=== PATIENT | male | born 1930 | race Caucasian/White ===

== ENCOUNTER 2017-11-18 06:59 | Emergency (ER) | payer MEDICARE, OTHER ==
[~2017-11-18] VITALS: Ht 182.9 cm; Wt 75.0 kg
[2017-11-18 07:07] VITALS: BP 175/87; PULSE 68; RESP 16; TEMP 97.8; O2SAT 99
--- NOTE | 2017-11-18 07:43 | PD ---
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 Pt has had a mccall catheter for a year with monthly changes at his urologist's office but did not have extra urine bags at home. Denies any fever , chest pain, sob, n/v, abdominal pain, hematuria, focal weakness or numbness. PFSH Past Medical History Hx Anticoagulant Therapy: No Diabetes: No Genitourinary: Yes (urinary retention) Social History Alcohol Use: No Tobacco Use: No Substance Use: No Allergies-Medications (Allergen,Severity, Reaction): Coded Allergies: No Known Allergies (Unverified , 11/18/17) Reported Meds & Prescriptions Reported Meds & Active Scripts Active No Active Prescriptions or Reported Medications Review of Systems Except as stated in HPI: all other systems reviewed are Neg Physical Exam Narrative GENERAL: 87yo M not in distress. SKIN: Focused skin assessment warm/dry. HEAD: Atraumatic. Normocephalic. CARDIOVASCULAR: Regular rate and rhythm. No murmur appreciated. RESPIRATORY: No accessory muscle use. Clear to auscultation. Breath sounds equal bilaterally. GASTROINTESTINAL: Abdomen soft, non-tender, nondistended. : Mccall catheter: Draining MUSCULOSKELETAL: No obvious deformities. No clubbing. No cyanosis. No edema. NEUROLOGICAL: Awake and alert. No obvious cranial nerve deficits. Motor grossly within normal limits. Normal speech. PSYCHIATRIC: Appropriate mood and affect; insight and judgment normal. 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 We change his urine bag here. Pt has no other complaints. Instructed him to follow up with urologist. Return precautions given. Diagnosis Primary Impression: Unspecified medical devices associated with adverse incidents Patient Instructions: General Instructions Departure Forms: Tests/Procedures Additional Instructions: Please follow up with your urologist. Return to the ED if any symptoms occur. Med/Other Pt SpecificInfo: No Change to Meds Scripts No Active Prescriptions or Reported Meds Disposition: 01 DISCHARGE HOME Condition: Stable Anai Hunt DO Nov 18, 2017 07:42
== END 2017-11-18 09:02 | disposition home or self-care (01) ==
LOC: PHED 06:59
DX: T83.038A Leakage of other urinary catheter, initial encounter (principal)
CPT/HCPCS: 99282